=== PATIENT | female | born 1950 | race Caucasian/White ===

== ENCOUNTER 2018-02-12 11:27 | Observation (INO) ==
[2018-02-12] MEDS ORDERED: ALBUTEROL SULFATE 2.5 MG/3 ML NEB ONE ×2 (11:39→11:48)
[2018-02-12] MEDS ORDERED: Sodium Chloride 0.9% 1,000 ML PRIMARY IV ONE ×3 (11:46→13:45)
[2018-02-12] MEDS ORDERED: ONDANSETRON 4 MG/2 ML VIAL IVP ONE (11:46)
[2018-02-12] MEDS ORDERED: DEXAMETHASONE PF 10 MG/1 ML VIAL IVP ONE (11:46)
[2018-02-12] MEDS ORDERED: DEXAMETHASONE PF 10 MG/1 ML VIAL ONE (11:48)
--- NOTE | 2018-02-12 11:48 | PDOC ---
Dyspnea HPI - General Chief Complaint: Respiratory Complaint Stated Complaint: RESPIRATORY DISTRESS Date Seen by Provider: 02/12/18 Time Seen by Provider: 11:42 Source: POSITIVE: Patient, EMS Exam Limitations: POSITIVE: No limitations Treatment Prior to Arrival: REPORTS: Oxygen, Albuterol Neb Treatment Nurse's Notes Reviewed & Considered: Yes - History of Present Illness Initial Comments: This is a well-developed, well-nourished, 67-year-old female who is in significant respiratory distress. Patient with gradually increasing respiratory distress began 2 days ago now with significant wheezing, oxygen hunger, cough, phlegm production, fever chills and sweats. Further review of systems is unavailable because the patient's difficulty breathing. Body Location Affected: REPORTS: Chest Timing: REPORTS: Gradual Duration: >24 hours Severity: Severe Initiating Event: REPORTS: Upper Respiratory Illness Context: DENIES: Sleep, Rest, Emotional Upset, Activity, Exertion, Other Exacerbated By: REPORTS: Exertion, Coughing Associated Symptoms: REPORTS: Fever, Chills, Sweating, Productive Cough Similar Symptoms Previously: No Recently seen/treated/hospitalized: No Any Prior Injuries Related to Current Complaint?: No - Patient Home Medications Home Medications: Home Medications estradiol 1 mg tablet 1 mg PO DAILY #90 tab 09/15/17 hydrochlorothiazide 25 mg tablet 25 mg PO QDAY PRN #90 tab 09/15/17 lisinopril 10 mg tablet 10 mg PO DAILY #90 tab 09/15/17 amitriptyline 50 mg tablet 50 mg PO QHS #90 tab 12/17/17 - Patient Allergies Allergies/Adverse Reactions: Allergies Allergy/AdvReac Type Severity Reaction Status Date / Time latex Allergy Severe RASH Verified 11/17/17 08:46 Past Medical History - heen HEENT History: Cataracts Cardiovascular History: Hypertension, Hyperlipidemia Respiratory History: Denies History Gastrointestinal History: Denies History Genitourinary History: Denies History Endocrine History: Denies History Musculoskeletal History: Joint Pain, Osteoarthritis, Other (please comment) Prosthesis or Implant: Yes (RIGHT KNEE) Additional Musculoskeletal History: RIGHT TKA Neurological History: Denies History Blood Disorders: Denies History Psychiatric History: Denies History History of Sexually Transmitted Diseases: No Cancer History: Skin In Past Year Been Physically Harmed or Verbally Threatened: No History of MDRO: No History of Other Communicable Diseases: No Tobacco Use: Never Smoker Alcohol Use: Rarely In the Past 12 Months, Have Used or Abuse Any Substance: None Previous Surgical History: Yes Type / Date of Surgery: CATARACT. RIGHT TKA. HYSTER. TONSILECTOMY Anesthesia Reactions: No Malignant Hyperthermia: No Significant Family History: No pertinent family hx, Heart disease ROS - Limitations ROS Limitations: Clinical Condition (Patient is laboring to breathe and further review of systems is unavailable.) Dyspnea Progress - Results Reviewed by me Xrays/CTs/US Reviewed by me: Yes Discussed with Radiologist: Yes Lab Results Reviewed by Me: Yes CBC and BMP: 02/12/18 11:35 02/12/18 11:35 Lab Results:: Laboratory Results 02/12/18 02/12/18 02/12/18 11:35 11:35 11:35 WBC 4.34 L RBC 5.36 Hgb 16.2 H Hct 47.3 H MCV 88.2 MCH 30.2 MCHC 34.2 RDW Std Deviation 43.6 RDW Coeff of Carmelo 13.5 Plt Count 184 MPV 9.2 Immature Gran % (Auto) 0.2 Neut % (Auto) 62.2 Lymph % (Auto) 27.0 [place] % (Auto) 9.9 Eos % (Auto) 0.2 Baso % (Auto) 0.5 Immature Gran # (Auto) 0.01 Neut # (Auto) 2.70 Lymph # (Auto) 1.17 [place] # (Auto) 0.43 Eos # (Auto) 0.01 Baso # (Auto) 0.02 WBC Morphology Comment Normal morphology Plt Morphology Comment Normal morphology RBC Morph Comment Normal morphology D-Dimer VBG pH VBG pCO2 VBG HCO3 VBG Base Excess Sodium 135 Potassium 3.7 L Chloride 99 Carbon Dioxide 22 L Anion Gap 14 BUN 12 Creatinine 0.6 Estimated GFR > 60 BUN/Creatinine Ratio 20.00 Glucose 126 H Calculated Osmolality 281.0 Lactic Acid 3.3 H Calcium 9.8 Total Bilirubin 0.6 AST 37 ALT 29 Alkaline Phosphatase 76 CK-MB (CK-2) Troponin I Handheld C-Reactive Protein 1.5 H NT-Pro-B Natriuret Pep 51.3 Total Protein 8.2 H Albumin 5.0 H Globulin 3.2 Albumin/Globulin Ratio 1.50 TSH Group A Strep Screen 02/12/18 02/12/18 02/12/18 11:35 11:35 11:35 WBC RBC Hgb Hct MCV MCH MCHC RDW Std Deviation RDW Coeff of Carmelo Plt Count MPV Immature Gran % (Auto) Neut % (Auto) Lymph % (Auto) [place] % (Auto) Eos % (Auto) Baso % (Auto) Immature Gran # (Auto) Neut # (Auto) Lymph # (Auto) [place] # (Auto) Eos # (Auto) Baso # (Auto) WBC Morphology Comment Plt Morphology Comment RBC Morph Comment D-Dimer 1.38 H VBG pH VBG pCO2 VBG HCO3 VBG Base Excess Sodium Potassium Chloride Carbon Dioxide Anion Gap BUN Creatinine Estimated GFR BUN/Creatinine Ratio Glucose Calculated Osmolality Lactic Acid Calcium Total Bilirubin AST ALT Alkaline Phosphatase CK-MB (CK-2) 0.54 Troponin I Handheld C-Reactive Protein NT-Pro-B Natriuret Pep Total Protein Albumin Globulin Albumin/Globulin Ratio TSH 3.60 Group A Strep Screen 02/12/18 02/12/18 02/12/18 11:35 11:46 12:15 WBC RBC Hgb Hct MCV MCH MCHC RDW Std Deviation RDW Coeff of Carmelo Plt Count MPV Immature Gran % (Auto) Neut % (Auto) Lymph % (Auto) [place] % (Auto) Eos % (Auto) Baso % (Auto) Immature Gran # (Auto) Neut # (Auto) Lymph # (Auto) [place] # (Auto) Eos # (Auto) Baso # (Auto) WBC Morphology Comment Plt Morphology Comment RBC Morph Comment D-Dimer VBG pH 7.47 H VBG pCO2 31 L VBG HCO3 23 VBG Base Excess -1 Sodium Potassium Chloride Carbon Dioxide Anion Gap BUN Creatinine Estimated GFR BUN/Creatinine Ratio Glucose Calculated Osmolality Lactic Acid Calcium Total Bilirubin AST ALT Alkaline Phosphatase CK-MB (CK-2) Troponin I Handheld 0.000 C-Reactive Protein NT-Pro-B Natriuret Pep Total Protein Albumin Globulin Albumin/Globulin Ratio TSH Group A Strep Screen Negative EKG Interpreted/Reviewed By Me:: Yes EKG Interpretation:: POSITIVE: Abnormal EKG - Patient's Progress Pain Medication Addressed: POSITIVE: Yes Re-Examine Time: 14:12 Status: POSITIVE: Improved MDM / ED Course: Patient was evaluated, an IV started, blood drawn and sent to the lab for studies, chest x-ray, CT scan of the chest, an EKG were obtained. Findings: CBC shows white count of 4.34, hemoglobin of 16.2, hematocrit of 47.3, normal platelets. Blood gases show pH is 7.47, PCO2 of 31, bicarbonate 23, base excess of -1. EKG shows a sinus tachycardia with a rate of 123 beats a minute and no ST elevations. CK-MB is 0.54, troponin is 0.000, d-dimer is elevated at 1.38. BNP is normal at 51.3. CMP shows a potassium of 3.7, CO2 of 22, glucose of 126, albumin of 5, total protein of 8.2. Strep swab is negative, there are influenza is positive. Chest x-ray shows no acute cardiopulmonary decompensation. CT scan of her chest shows no pulmonary emboli present. Assessment: #1. Parainfluenza respiratory infection. #2 tachycardia. #3 elevated d-dimer. Plan: Patient is being admitted after receiving IV steroids and albuterol neb ulizer treatment here in the emergency room. Air Movement: POSITIVE: Fair Quality Measure Initiative: CP/AMI: POSITIVE: EKG Quality Measure Initiative: CAP: POSITIVE: CXR or CT - Consult Consult (If Yes, Name of Consulting MD & Time Called): Yes (Dr. Allen, 1415hrs) Consulting MD will see pt:: [place]ITIVE[place] [facility] [place] Counseled: POSITIVE: Patient, Family, RE: Lab Results, RE: Radiology Results, RE: DX, RE: Need for F/U Patient Care Time - Estimated PCT Patient Care Time (In Minutes): 45 Vital Signs - Recent Vital Signs Vital Signs: Vital Signs (Last 8 hours) Temp Pulse Pulse Resp BP Pulse Ox 02/12/18 11:51 114 H 24 02/12/18 11:50 114 H 24 97 02/12/18 11:30 98.1 F 112 H 30 H 140/92 100 - VS Reviewed Vital Signs Reviewed: Yes Discharge Clinical Impression: Parainfluenza, Respiratory tract infection, Tachycardia Discharge Disposition: Admit to Observation Condition: Stable Follow Up With: CALLY PERRY [Primary Care Provider] - Date Decision to Admit to Inpatient: 02/12/18 Time Decision to Admit to Inpatient: 14:15
[2018-02-12 11:51] LABS: VENOUS PH 7.47 (7.32-7.42)
[2018-02-12 11:51] LABS: BASOPHILS # (AUTO) 0.02 10*3/UL; BASOPHILS % (AUTO) 0.5 % (0-1); EOSINOPHILS # (AUTO) 0.01 10*3/UL; EOSINOPHILS % (AUTO) 0.2 % (0-8); Hematocrit [HCT] 47.3 % (37.0-47.0); Hemoglobin [HGB] 16.2 g/dL (12.0-16.0); LYMPHOCYTES # (AUTO) 1.17 10*3/uL; MEAN CORPUSCULAR HEMOGLOBIN 30.2 PG (27-31); MEAN CORPUSCULAR HGB CONC 34.2 g/dL (33-37); MEAN CORPUSCULAR VOLUME 88.2 FL (81-99); MEAN PLATELET VOLUME 9.2 FL (7.4-12.2); MONOCYTES # (AUTO) 0.43 10*3/UL (0.3-0.8); MONOCYTES % (AUTO) 9.9 % (5-15); NEUTROPHILS % (AUTO) 62.2 % (50-80); RED BLOOD COUNT 5.36 10^6/uL (4.20-5.40)
[2018-02-12 11:54] LABS: PLATELET MORPHOLOGY COMMENT NORMAL MORPHOLOGY (NORM); RBC MORPHOLOGY COMMENT NORMAL MORPHOLOGY (NORM); WBC MORPHOLOGY COMMENT NORMAL MORPHOLOGY (NORM)
--- NOTE | 2018-02-12 12:00 | EKG ---
[address] [address] Measurements Intervals [place] Rate: 123 P: 47 SC: 160 QRS: 22 QRSD: 91 T: 51 QT: 337 QTc: 410 Interpretive Statements SINUS TACHYCARDIA NONSPECIFIC ST & T-WAVE ABNORMALITY ABNORMAL RHYTHM ECG No previous ECG available for comparison Electronically Signed On 02-12-18 12:33:58 MST by Luis Rojo MD [email or web address]
[2018-02-12 12:06] LABS: BLOOD UREA NITROGEN 12 mg/dL (7-22)
--- NOTE | 2018-02-12 12:59 | DI ---
XR CXR 1VW,02/12/2018 11:46 AM: Clinical History: Shortness of breath Previous Exam: None at this facility. Findings: A single frontal radiograph of the chest is obtained, and demonstrates clear lungs. The cardiomediast inum and bony thorax are unremarkable. Impression: No acute cardiopulmonary disease.
--- NOTE | 2018-02-12 13:53 | DI ---
CT CTA Chest Non-Coronary O,02/12/2018 12:18 PM: Clinical History: Shortness of breath Previous Exam: None at this facility. Findings: Multiple helically acquired CT images are obtained through the chest following a CT angiogram protoco l, and demonstrate no evidence of filling defect or truncation to suggest pulmonary embolism. Lungs are clear. The cardiomediastinum is unremarkable. There is no infiltrate nor effusion. There is no definite filling defect or truncation of the pulmonary arteries to suggest pulmonary embo lism. The aorta is unremarkable. There is no lymphadenopathy. Mild degenerative changes of the thoracic spine are seen. Impression: Normal CT angiogram.
[2018-02-12] MEDS ORDERED: ACETAMINOPHEN 325 MG TABLET PO PRN (14:28)
[2018-02-12] MEDS ORDERED: LIDOCAINE W/ SODIUM BICARB 0.5 ML SYR SUBD PRN (14:28)
[2018-02-12] MEDS ORDERED: ONDANSETRON 4 MG/2 ML VIAL IVP PRN (14:28)
[2018-02-12] MEDS ORDERED: DOCUSATE 100 MG CAPSULE PO PRN (14:28)
[2018-02-12] MEDS ORDERED: HYDROCHLOROTHIAZIDE 25 MG TABLET PO PRN (14:28)
[2018-02-12] MEDS ORDERED: CALCIUM CARBONATE 500 MG (TUMS) CHEWABLE TABLET PO PRN (14:28)
[2018-02-12] MEDS: Sodium Chloride 0.9% 1,000 ML PRIMARY IV SCH ×2 (15:14→23:03)
[2018-02-12] MEDS ORDERED: GUAIFENESIN/CODEINE SYRUP 100 MG/ 10 MG/ 5 ML UD CUP PO PRN (15:30)
--- NOTE | 2018-02-12 15:36 | PDOC ---
HPI - History of Present Illness Date of Service: 02/12/18 Time of Service: 15:31 Chief Complaint: Acute shortness of breath History of Present Illness: This very pleasant 67-year-old female who has hypertension and chronic insomnia on amitriptyline, and hormone replacement therapy status post remote hysterectomy with bilateral septum in general over rectum me, who presents today accompanied by her grandson, his friend, and her son. She states that around [place] she started to feel somewhat bad with a little bit of cold and cough symptoms. Her cough persisted and she just gradually got much worse. She's had a barking, nonproductive cough. No fevers. Today, she was very short of breath and cannot catch her breath at all. She was taken immediately to the urgent care by her grandson with a center in by ambulance to the emergency room. In the emergency room, she was given breathing therapies, dexamethasone, and a workup ensued. Chest x-ray and CT scan were negative for pneumonia and blood clot respectively. Currently, the patient states that she feels much better after breathing therapies and oxygen. She did not smoke. She has not been diagnosed with COPD or asthma in the past. A respiratory panel showed parai nfluenza 2. Past Medical History Medical History: 1. Hypertension. 2. Insomnia. 3. Hormone replacement therapy Surgical History: 1. Detached retina. 2. Cataracts. 3. Knee replacement. 4. Hysterectomy with bilateral salpingo-ophorectomy Pertinent Family History: Father of old age. Mother at age 45 presumably from cardiac problems. Past Social History: Patient is . Was 49 years prior. Has children that are healthy lives [place] here close to [place], [place]. Does not smoke or drink. Tobacco Use: Never Smoker In the Past 12 Months, Have Used or Abuse Any of the Following Substance: None Alcohol Use: None Medication / Allergies Home Medications: Home Medications Medication Instructions Recorded Confirmed Type estradiol 1 mg tablet 1 mg PO DAILY #90 tab 09/15/17 02/12/18 Rx hydrochlorothiazide 25 mg tablet 25 mg PO QDAY PRN #90 tab 09/15/17 02/12/18 Rx lisinopril 10 mg tablet 10 mg PO DAILY #90 tab 09/15/17 02/12/18 Rx amitriptyline 50 mg tablet 50 mg PO QHS #90 tab 12/17/17 02/12/18 Rx Allergies/Adverse Reactions: Allergies Allergy/AdvReac Type Severity Reaction Status Date / Time latex Allergy Severe RASH Verified 02/12/18 14:39 Review of Systems - Review of Systems All Systems: Reviewed & No Additional Complaints Except as Stated (I did a 12 point review systems and it was negative other than that discussed in history present illness.) Exam - Vitals Vital Signs: Vital Signs Temperature 99.5 F Temperature Source Temporal Artery Scan Pulse Rate [Apical] 108 Pulse Rate [Pulse Oximeter] 93 Pulse Rate 104 Respiratory Rate 20 Blood Pressure [Left Arm] 130/84 Blood Pressure 131/80 Pulse Ox 93 Oxygen Flow Rate 4 Oxygen Delivery Method Nasal Cannula Height 5 ft 6 in Weight 220 lb - General General Appearance: No Acute Distress, Cooperative - Head Head Exam: Normal Inspection, Normocephalic, Atraumatic - Eye Eye Exam: POSITIVE: No Scleral Icterus - ENT ENT Exam: POSITIVE: Mucous Membranes Moist - Neck Neck Exam: Normal Inspection, No Tenderness, No Lymphadenopathy, No Thyromegaly, JVP is not Raised - Respiratory Respiratory Exam: POSITIVE: Clear to Auscultation - Bilaterally, Breathing Non Labored, Normal to Percussion and Palpation Additional Respiratory Exam Details: She had wheezing in the emergency room I am told - Cardiovascular Cardiovascular Exam: POSITIVE: No Murmur, No Clicks, No Gallops, No Rubs, Tachycardia, No JVD - GI/Abdominal GI/Abdominal Exam: POSITIVE: Normal Bowel Sounds, Non Tender, Non Distended, Soft - Rectal Rectal Exam: POSITIVE: Deferred - External Exam: POSITIVE: Deferred Exam: POSITIVE: Deferred - Extremities Extremities Exam: POSITIVE: No Clubbing Present, No Edema Present, No Cyanosis Present - Back Back Exam: POSITIVE: Normal Inspection, No CVA Tenderness - Neurological Neurological Exam: POSITIVE: Alert, Oriented x 3, No Facial Droop, Speech Intact / Clear, Moves All Extremities Equally - Psychiatric Psychiatric Exam: POSITIVE: Normal Affect, Normal Mood Results - Labs CBC and BMP: 02/12/18 11:35 02/12/18 11:35 Additional Lab Results: Laboratory Results 02/12/18 02/12/18 02/12/18 11:35 11:35 11:35 WBC 4.34 L RBC 5.36 Hgb 16.2 H Hct 47.3 H MCV 88.2 MCH 30.2 MCHC 34.2 RDW Std Deviation 43.6 RDW Coeff of Carmelo 13.5 Plt Count 184 MPV 9.2 Immature Gran % (Auto) 0.2 Neut % (Auto) 62.2 Lymph % (Auto) 27.0 [place] % (Auto) 9.9 Eos % (Auto) 0.2 Baso % (Auto) 0.5 Immature Gran # (Auto) 0.01 Neut # (Auto) 2.70 Lymph # (Auto) 1.17 [place] # (Auto) 0.43 Eos # (Auto) 0.01 Baso # (Auto) 0.02 WBC Morphology Comment Normal morphology Plt Morphology Comment Normal morphology RBC Morph Comment Normal morphology D-Dimer VBG pH VBG pCO2 VBG HCO3 VBG Base Excess Sodium 135 Potassium 3.7 L Chloride 99 Carbon Dioxide 22 L Anion Gap 14 BUN 12 Creatinine 0.6 Estimated GFR > 60 BUN/Creatinine Ratio 20.00 Glucose 126 H Calculated Osmolality 281.0 Lactic Acid 3.3 H Calcium 9.8 Total Bilirubin 0.6 AST 37 ALT 29 Alkaline Phosphatase 76 CK-MB (CK-2) Troponin I Handheld C-Reactive Protein 1.5 H NT-Pro-B Natriuret Pep 51.3 Total Protein 8.2 H Albumin 5.0 H Globulin 3.2 Albumin/Globulin Ratio 1.50 TSH Group A Strep Screen 02/12/18 02/12/18 02/12/18 11:35 11:35 11:35 WBC RBC Hgb Hct MCV MCH MCHC RDW Std Deviation RDW Coeff of Carmelo Plt Count MPV Immature Gran % (Auto) Neut % (Auto) Lymph % (Auto) [place] % (Auto) Eos % (Auto) Baso % (Auto) Immature Gran # (Auto) Neut # (Auto) Lymph # (Auto) [place] # (Auto) Eos # (Auto) Baso # (Auto) WBC Morphology Comment Plt Morphology Comment RBC Morph Comment D-Dimer 1.38 H VBG pH VBG pCO2 VBG HCO3 VBG Base Excess Sodium Potassium Chloride Carbon Dioxide Anion Gap BUN Creatinine Estimated GFR BUN/Creatinine Ratio Glucose Calculated Osmolality Lactic Acid Calcium Total Bilirubin AST ALT Alkaline Phosphatase CK-MB (CK-2) 0.54 Troponin I Handheld C-Reactive Protein NT-Pro-B Natriuret Pep Total Protein Albumin Globulin Albumin/Globulin Ratio TSH 3.60 Group A Strep Screen 02/12/18 02/12/1802/12/18 11:35 11:46 12:15 WBC RBC Hgb Hct MCV MCH MCHC RDW Std Deviation RDW Coeff of Carmelo Plt Count MPV Immature Gran % (Auto) Neut % (Auto) Lymph % (Auto) [place] % (Auto) Eos % (Auto) Baso % (Auto) Immature Gran # (Auto) Neut # (Auto) Lymph # (Auto) [place] # (Auto) Eos # (Auto) Baso # (Auto) WBC Morphology Comment Plt Morphology Comment RBC Morph Comment D-Dimer VBG pH 7.47 H VBG pCO2 31 L VBG HCO3 23 VBG Base Excess -1 Sodium Potassium Chloride Carbon Dioxide Anion Gap BUN Creatinine Estimated GFR BUN/Creatinine Ratio Glucose Calculated Osmolality Lactic Acid Calcium Total Bilirubin AST ALT Alkaline Phosphatase CK-MB (CK-2) Troponin I Handheld 0.000 C-Reactive Protein NT-Pro-B Natriuret Pep Total Protein Albumin Globulin Albumin/Globulin Ratio TSH Group A Strep Screen Negative - EKG Data -: EKG Interpreted by Me Rate: Tachycardia EKG Shows Normal: Sinus Rhythm - Imaging Status: Image Reviewed by Me (Chest x-ray does not reveal any pneumonia. CT scan of the chest does not reveal any pneumonia. The radiologist said it was negative for pulmonary emboli) Assessment and Plan - Patient Problems (1) Viral URI with cough Current Visit: Yes Status: Acute Code(s): J06.9 - Acute upper respiratory infection, unspecified; B97.89 - Other viral agents as the cause of diseases classified elsewhere (2) Parainfluenza Current Visit: Yes Status: Acute Code(s): B33.8 - Other specified viral diseases (3) Essential hypertension Current Visit: Yes Status: Chronic Onset Date: 11/13/11 Code(s): I10 - Essential (primary) hypertension (4) Insomnia Current Visit: Yes Status: Chronic Onset Date: 11/13/11 Code(s): G47.00 - Insomnia, unspecified Qualifiers: Insomnia type: unspecified Qualified Code(s): G47.00 - Insomnia, unspecified - Assessment / Plan Additional Assessment/Plan Details: Admit patient for observation. Her d-dimer was elevated but I think it's related to the viral infection. I told the patient she might benefit from outpatient spirometry in about 3-4 weeks to make sure she does not have any underlying asthma or COPD. Supportive care here with fluids, oxygen, and duo Neb therapies. In addition I'll write for vitamin C and Robitussin-AC when necessary cough. Patient is full code. I discussed the above plan with the patient and her family and they all agreed. At this time I do not see any evidence of a secondary bacterial infection. I will hold off on antibiotics. I discussed this with the family and the difference between viruses and bacteria and they seem very satisfied with that description.
[2018-02-12] MEDS ORDERED: ASCORBIC ACID Chewable 500 MG TABLET PO ONE (15:38)
[2018-02-12] MEDS: IPRATROPIUM/ALBUTEROL SULFATE 3 ML NEB NEB SCH (18:57)
[2018-02-12] MEDS ORDERED: AMITRIPTYLINE 25 MG TABLET PO SCH (21:00)
[2018-02-13] MEDS: IPRATROPIUM/ALBUTEROL SULFATE 3 ML NEB NEB SCH ×2 (00:36→06:01)
[2018-02-13] MEDS: Sodium Chloride 0.9% 1,000 ML PRIMARY IV SCH (07:01)
[2018-02-13] MEDS ORDERED: LISINOPRIL 10 MG TABLET PO SCH (09:00)
[2018-02-13] MEDS ORDERED: ASCORBIC ACID Chewable 500 MG TABLET PO SCH (09:00)
[2018-02-13] MEDS ORDERED: ESTRADIOL 1 MG PO SCH (09:00)
--- NOTE | 2018-02-13 10:05 | DCSUMMARY ---
Hospitalization Summary Hospital Course: Final Discharge Diagnosis: Current Visit Problems Problem Status Onset Code Parainfluenza Acute B33.8 Respiratory tract infection Acute J98.8 Tachycardia Acute R00.0 Viral URI with cough Acute J06.9, B97.89 Insomnia Chronic 11/13/11 G47.00 Essential hypertension Chronic 11/13/11 I10 Diagnostic Data, Laboratory Data, and Procedures of Signifigance: CBC and BMP 02/12/18 11:35 02/12/18 11:35 History and Physical pertinent to Admission: Past Medical History Medical History: 1. Hypertension. 2. Insomnia. 3. Hormone replacement therapy Surgical History: 1. Detached retina. 2. Cataracts. 3. Knee replacement. 4. Hysterectomy with bilateral salpingo-ophorectomy Pertinent Family History: Father of old age. Mother at age 45 presumably from cardiac problems. Past Social History: Patient is . Was 49 years prior. Has children that are healthy lives [place] here close to [place], [place]. Does not smoke or drink. Tobacco Use: Never Smoker In the Past 12 Months, Have Used or Abuse Any of the Following Substance: None Course of Hospitalization: This very nice 67-year-old female had somewhat of a cold on [place], cough persisted went to urgent care and subsequently was sent to the emergency room. Chest x-ray and CT were negative for pneumonia no PE diagnosed with parainfluenza viral bronchitis patient improved with hydration and dual nebs. Feels back to her normal self today and would like to be discharged home. She is eating has no fever no nausea no vomiting she will be prescribed some Tessalon Perles for her residual cough albuterol inhaler I did tell her this cough persist in the next 2-3 days. I will give her a prescription for prednisone 405 days this usually can break this viral cough. Patient und erstands and agrees she has my phone number and can call me with any questions discussed with patient's son and nurse in the room she will also take some extra potassium replacement which she has at home On the date of discharge, the patient was examined: Gen.: No acute distress, alert, nontoxic Heart: Regular rate and rhythm, no murmurs, clicks, gallops, or rubs Lungs: Clear to auscultation bilaterally, breathing is nonlabored Abdomen/GI: Normal tones on auscultation, soft, nontender, nondistended Musculoskeletal/extremities: No clubbing, cyanosis, or edema Vitals reviewed and are listed below Vital Signs (24 hrs) 02/12/18 11:30 02/12/18 11:50 02/12/18 11:51 Temperature 98.1 F Pulse Rate 114 H 114 H Pulse Rate [Apical] Pulse Rate [Pulse Oximeter] 112 H Respiratory Rate 30 H 24 24 Blood Pressure Blood Pressure [Left Arm] 140/92 Blood Pressure [Right Radial Artery] Pulse Ox 100 97 02/12/18 14:28 02/12/18 14:30 02/12/18 14:38 Temperature 98.1 F Pulse Rate 104 H Pulse Rate [Apical] Pulse Rate [Pulse Oximeter] Respiratory Rate 24 16 Blood Pressure 131/80 Blood Pressure [Left Arm] Blood Pressure [Right Radial Artery] Pulse Ox 93 97 02/12/18 14:50 02/12/18 15:22 02/12/18 18:57 Temperature 99.5 F Pulse Rate 84 Pulse Rate [Apical] 108 H Pulse Rate [Pulse Oximeter] 93 Respiratory Rate 24 20 18 Blood Pressure Blood Pressure [Left Arm] 130/84 Blood Pressure [Right Radial Artery] Pulse Ox 93 98 02/12/18 18:58 02/12/18 19:00 02/12/18 19:27 Temperature 98.4 F Pulse Rate 92 Pulse Rate [Apical] Pulse Rate [Pulse Oximeter] 91 91 Respiratory Rate 18 18 Blood Pressure Blood Pressure [Left Arm] 134/72 Blood Pressure [Right Radial Artery] Pulse Ox 97 94 02/12/18 22:00 02/13/18 00:14 02/13/18 00:36 Temperature 97.9 F Pulse Rate 74 Pulse Rate [Apical] Pulse Rate [Pulse Oximeter] 74 Respiratory Rate 18 18 18 Blood Pressure Blood Pressure [Left Arm] 133/72 Blood Pressure [Right Radial Artery] Pulse Ox 94 97 97 02/13/18 00:37 02/13/18 02:00 02/13/18 04:37 Temperature 98.0 F Pulse Rate 84 Pulse Rate [Apical] Pulse Rate [Pulse Oximeter] 73 Respiratory Rate 18 18 20 Blood Pressure Blood Pressure [Left Arm] 124/58 Blood Pressure [Right Radial Artery] Pulse Ox 97 97 94 02/13/18 04:43 02/13/18 05:58 02/13/18 06:01 Temperature Pulse Rate 73 Pulse Rate [Apical] Pulse Rate [Pulse Oximeter] Respiratory Rate 20 16 Blood Pressure Blood Pressure [Left Arm] Blood Pressure [Right Radial Artery] Pulse Ox 94 96 95 02/13/18 06:02 02/13/18 06:43 02/13/18 07:33 Temperature 98.1 F Pulse Rate 75 Pulse Rate [Apical] Pulse Rate [Pulse Oximeter] 80 Respiratory Rate 16 16 16 Blood Pressure Blood Pressure [Left Arm] Blood Pressure [Right Radial Artery] 125/68 Pulse Ox 90 Assessment and Plan: 1. As per discharge assessments above 2. Disposition: Home 3. Condition on discharge, stable and improved. 4. Diet: regular diet 5. Activities: resume normal activities 6. Follow-Up: 1. PCP as needed if not improved in the next 5 days 2. 7. Medications at the Time of Discharge: Home Medications Medication Instructions Recorded Confirmed Type estradiol 1 mg tablet 1 mg PO DAILY #90 tab 09/15/17 02/12/18 Rx hydrochlorothiazide 25 mg tablet 25 mg PO QDAY PRN #90 tab 09/15/17 02/12/18 Rx lisinopril 10 mg tablet 10 mg PO DAILY #90 tab 09/15/17 02/12/18 Rx amitriptyline 50 mg tablet 50 mg PO QHS #90 tab 12/17/17 02/12/18 Rx Albuterol Sulfate [Proventil Hfa] 1 puff INH Q4H #1 inh 02/13/18 Rx Benzonatate [Tessalon Perle] 200 mg BUCCAL Q4-6H #20 cap 02/13/18 Rx predniSONE Tab [Deltasone Tab] 40 mg PO DAILY #5 tab 02/13/18 She will call me if her cough is not better and will start taking this Rx 8. Time, care, counseling and coordination of care for this discharge is greater than 30 minutes. Exam - Vitals Vital Signs: Vital Signs Temperature 98.1 F Temperature Source Oral Pulse Rate [Apical] 108 Pulse Rate [Pulse Oximeter] 80 Pulse Rate 75 Respiratory Rate 16 Blood Pressure [Right Radial 125/68 Artery] Blood Pressure [Left Arm] 124/58 Blood Pressure 131/80 Pulse Ox 90 Oxygen Flow Rate 1 Oxygen Delivery Method Room Air Height 5 ft 6 in Weight 220 lb
[2018-02-13 18:28] VITALS: RESP 16; O2SAT 90
[2018-02-13 18:31] VITALS: BP 125/68; TEMP 98.1
== END 2018-02-13 10:28 | disposition home or self-care (01) ==
LOC: ER 11:27 → MED/SURG 11:27
PROVIDERS: ADMIT Family Medicine; ATTEND Family Medicine